=== PATIENT | male | born 1980 | race Caucasian/White ===

== ENCOUNTER 2023-05-22 18:25 | Emergency (ER) | payer OTHER, SELFPAY ==
[2023-05-22 18:38] VITALS: BP 133/89
[2023-05-22 18:53] LABS: % Basophils 0.3 % (0-2); % Eosinophils 0.3 % (0-6); % Immature Granulocytes 0.5 % (0-0.5); % Monocytes 7.1 % (1.7-9.3); % Neutrophils 82.8 % (42.2-75.2); Absolute Basophils 0.1 10^3/uL (0-0.2); Absolute Eosinophils 0.1 10^3/uL (0-0.7); Absolute Immature Granulocytes 0.1 10^3/uL (0-0.05); Absolute Lymphocytes 1.6 10^3/uL (1.2-3.4); Absolute Monocytes 1.3 10^3/uL (0.1-0.6); Absolute Neutrophils 14.7 10^3/uL (1.4-6.5); Hematocrit 43.6 % (39.0-52.0); Hemoglobin 15.7 g/dL (13.0-18.0); Mean Corpuscular Hgb 29.8 pg (27.0-31.0); Mean Corpuscular Volume 82.7 fL (80.0-94.0); Mean Platelet Volume 9.1 fL (7.4-10.4); Nucleated Red Blood Cells % 0 % (-); Platelet Count 290 10^3/uL (130-400); Red Blood Cell Count 5.27 10^6/uL (4.70-6.10); Red Cell Dist. Width 12.7 % (11.5-14.5); White Blood Cell Count 17.7 10^3/uL (4.8-10.8)
[2023-05-22 19:06] LABS: ALT (SGPT) 27 U/L (0-50); AST (SGOT) 27 U/L (17-59); Alkaline Phosphatase 83 U/L (38-126); Carbon Dioxide 27 mmol/L (22-30); Chloride 98 mmol/L (98-107); Glucose 98 mg/dl (70-99); Potassium 4.2 mmol/L (3.5-5.1); Sodium 136 mmol/L (135-145); Total Bilirubin 1.2 mg/dl (0.2-1.3); Total Protein 8.6 g/dl (6.3-8.2); eGFR > 60.00
[2023-05-22 19:15] LABS: Blood Urea Nitrogen 17 mg/dl (9-20)
[2023-05-22 21:55] VITALS: BP 131/90
[2023-05-22 21:57] VITALS: BMI 28.5
[2023-05-22] MEDS: TYLENOL 1000 MG PO (22:12)
[2023-05-22] MEDS: NSS 1000 IV (22:18)
[2023-05-22 23:42] VITALS: BP 121/76
[2023-05-23 00:03] LABS: Urine Albumin Negative (Neg - Trace); Urine Bilirubin Negative (Negative); Urine Character Clear (Clear); Urine Color Yellow; Urine Glucose Negative (Negative); Urine Ketone Trace (Negative); Urine Leukocyte Trace (Negative); Urine Nitrite Negative (Negative); Urine Occult Blood Negative (Negative); Urine Specific Gravity 1.015 (<1.030); Urine Urobilinogen Negative (Neg - 1+)
[2023-05-23 00:40] VITALS: BP 142/72
[2023-05-23 00:44] LABS: Urine Bacteria Few (Negative); Urine White Cell 0-2 /HPF (0-5)
[2023-05-23 01:50] VITALS: BP 120/76
[2023-05-23] MEDS: BACTRIM DS 800 MG/160 MG 2 TABLET PO (01:52)
[2023-05-23] MEDS: KEFLEX 500 MG PO (01:52)
[2023-05-23 01:57] VITALS: BP 120/76
--- NOTE | 2023-05-23 02:43 | ED.GENMED ---
History of Present Illness
General
Chief Complaint: Male Genito-Urinary Symptoms
Source: patient
Exam Limitations: none
Time Seen by Provider: 05/22/23 21:50
Nursing documentation reviewed up to this point in time: agreed with
Travel History
Have you had any contact with someone who has COVID-19?: No
Do you have any symptoms of coronavirus? Fever > 100 degrees, chills, cough, shortness of breath, sore throat, loss of taste or smell, muscle aches, or headache?: No
History of Present Illness
History of Present Illness:
42-year-old male with [place] history of anxiety depression GERD presenting to the emergency department today with concerns of swelling to his right testicle worsening over the past 2 days. Was seen in urgent care and sent to ER denies any fevers
or systemic symptoms. Denies any urinary symptoms.
Past History
Past History
ED Past Medical History: GERD and Psychiatric (Panic attack)
ED Past Surgical History: None
Social History
Tobacco: Non-smoker
Alcohol: Occasional
Drug: None
Personal:
Living: with family
Employment: Employed
Family History
Family History: Other (Nonsignificant)
Review of Systems
Review of Systems
Allergies reviewed?: Yes
All Other Systems: ROS reviewed and negative except as documented in HPI and ROS
Phy Exam
Physical Exam
Physical Exam:
GENERAL: Alert , in no apparent distress
EYE: pupils equal and reactive
NECK: Supple, no significant adenopathy.
ENT: o/p clr, mmm.
CARDIAC: Regular rate and rhythm .
LUNGS: Clear breath sounds bilaterally, no acute respiratory distress, no wheezes/rales/rhonchi
ABDOMEN: Just below the right scrotum is an area of fluctuance and induration roughly 3 cm in size no spontaneous drainage normal testicular exam soft, without focal tenderness, no r/g, no cvat
NEUROLOGICAL: Alert and oriented, no focal neuro deficits
SKIN: Warm and dry, skin intact.
MUSCULOSKELETAL: No edema, well perfused.
PSYCH: Normal and appropriate interaction.
Course
Orders/Labs/Results
Orders:
Orders
05/22/23 18:44
Complete Blood Count/With Diff Urgent
Comprehensive Metabolic Panel Urgent
05/22/23 21:50
Scrotum US [US Scrotum] Urgent
Comment:
Reason For Exam: right testicle swelling
05/22/23 22:02
Acetaminophen [Tylenol] 1,000 mg PO NOW STA
05/22/23 22:03
0.9% Sodium Chloride 1000 ml [Nss] 1,000 ml IV BOLUS
05/22/23 22:19
Lactic Acid Urgent
05/22/23 23:30
Chlamydia/GC by PCR Urgent
CARLOS Source: Urine
Specimen Description:
Source:: URINE
Date Specimen was Collected: 05/22/23
Time Specimen was Collected: 23:44
05/22/23 23:48
Urinalysis Reflex To Culture Urgent
Date Specimen was Collected: 05/22/23
Time Specimen was Collected: 23:44
Urine Microscopic Reflex Cult Urgent
05/23/23 01:46
Cephalexin Monohydrate [Keflex] 500 mg PO NOW STA
Sulfamethox./Trimethoprim Ds [Bactrim Ds 800 mg/160 mg] 2 tablet PO NOW STA
Abnormal Lab Results
05/22/23 05/22/23
18:44 23:48
WBC 17.7 H 10^3/uL
(4.8-10.8)
Abs Immat Gran (auto) 0.1 H 10^3/uL
(0-0.05)
Absolute Neuts (auto) 14.7 H 10^3/uL
(1.4-6.5)
Absolute Monos (auto) 1.3 H 10^3/uL
(0.1-0.6)
Neutrophils % 82.8 H %
(42.2-75.2)
Lymphocytes % 9.0 L %
(20.5-51.1)
Total Protein 8.6 H g/dl
(6.3-8.2)
Urine Ketones Trace A
(Negative)
Leukocyte Esterase Rfl Trace A
(Negative)
Urine RBC 3-6 A /HPF
(0-2)
Urine Bacteria (Reflex) Few A
(Negative)
05/22/23 18:44
05/22/23 18:44
Vital Signs
Initial and Last Documented VS:
Initial Vital Signs
Temp Pulse Resp BP Pulse Ox
99.5 F 80 18 133/89 100
05/22/23 18:38 05/22/23 18:38 05/22/23 18:38 05/22/23 18:38 05/22/23 18:38
Last Documented Vital Signs
Temp Pulse Resp BP Pulse Ox
99.2 F 96 17 120/76 95
05/22/23 23:42 05/23/23 01:50 05/23/23 01:50 05/23/23 01:50 05/23/23 01:50
Procedures
Incision/Drainage/Joint Aspiration
Right Groin:
Anethesia: 1% Lidocaine with Epi
Preparation: cleaned with Hibiclens
Type of procedure: incise and drain
Nature of site: abscess
Description of abscess: greater than 3cm
Loculations broken up: Yes
How much fluid was obtained?: large amount
Fluid description: purulent
Treatment: left open for drainage
MDM/Problems Addressed
MDM/Problems Addressed:
42-year-old male presenting to the emergency department today with concerns of swelling below his right scrotum over the past 24 hours. Low risk for STDs claims that he had a single partner. Does avoid 0.7 Temperature of 99.2 Reassessment
Otherwise Vital Signs Are Normal. Additional Labs Unremarkable. Ultrasound Was Performed That Showed Scrotal Wall Skin Abscess but Not Involving the Inner Contents of the Scrotum. Case Was Discussed with Urology They Recommended Superficial
Incision and Drainage Here and Outpatient Follow-Up. Patient Was Agreeable to This Plan. Started on Bactrim and Keflex and Advised for Close Outpatient Follow-Up. Return Precautions Given.
*Critical Care Note
Total Time (30-74mins, 75-104mins- exclusive of procedures): Not Applicable
ED Attending Note
-
Portions of this chart may have been created with voice recognition software.� Occasional wrong word or��sound alike� substitutions may have occurred due to the inherent limitations of voice recognition software.
Discharge Plan
Departure
Patient Disposition: Home (Routine Discharge)
Date of Disposition: 05/23/23
Time of Disposition: 03:46
Patient with high blood pressure during this ER visit?: No
Condition: Good
Covid-19: Not Applicable
Discharge Problem:
Abscess of scrotal wall
Instructions: Abscess Incision and Drainage (DC)
Prescriptions:
New
sulfamethoxazole-trimethoprim [Bactrim DS] 800-160 mg tablet
1 tab PO BID 5 Days Qty: 10 0RF
cephalexin 500 mg capsule
500 mg PO QID 5 Days Qty: 20 0RF
Referrals:
Guanaco Hameed MD [Family Provider] -
Jaguar Sanders MD [Active] - Follow up in 5-7 days
Activity Restrictions/Additional Instructions:
You came to the emergency department today with concerns of an abscess below your scrotum. This was drained with a significant amount of purulence here. Please use warm compresses to the area and keep the area clean and covered. Please
antibiotics and follow-up closely with urology. Immediately return to the emergency department for any worsening symptoms.
Interventions
Interventions:
*Risk Screen - Suicide Last Done: 05/22/23 21:58
*General Assessment Last Done: 05/22/23 21:58
*Neglect/Abuse Screening Last Done: 05/22/23 21:58
ED- Fall Risk Assessment Last Done: 05/22/23 23:40
*ED COVID-19 Vaccine History Last Done: 05/22/23 18:39
ED-Male Genitourinary Assessment Last Done: 05/22/23 23:40
Discharge Date and Time
Print Language: FRENCH
== END 2023-05-23 04:00 | disposition home or self-care (01) ==
LOC: EMR 18:25
PROVIDERS: Physician Assistant; Student in an Organized Health Care Education/Training Program; EMERGENCY PHYSICIAN Emergency Medicine; FAMILY PHYSICIAN Family Medicine
DX: N49.2 Inflammatory disorders of scrotum (principal); K21.9 Gastro-esophageal reflux disease without esophagitis; F41.9 Anxiety disorder, unspecified; F32.A Depression, unspecified; F41.0 Panic disorder [episodic paroxysmal anxiety]
CPT/HCPCS: 54700; 99284; 96360; 76870; 80053; 81003; 81015; 83605; 85025; 87491; 87591; 93976

== ENCOUNTER 2023-10-05 03:59 | Emergency (ER) | payer OTHER, SELFPAY ==
[2023-10-05 04:07] VITALS: BP 142/92
[2023-10-05 04:44] VITALS: BP 129/89
[2023-10-05 04:48] LABS: % Basophils 0.4 % (0-2); % Immature Granulocytes 0.2 % (0-0.5); % Lymphocytes 29.5 % (20.5-51.1); % Monocytes 7.9 % (1.7-9.3); Absolute Eosinophils 0.3 10^3/uL (0-0.7); Absolute Lymphocytes 2.7 10^3/uL (1.2-3.4); Absolute Monocytes 0.7 10^3/uL (0.1-0.6); Absolute Neutrophils 5.4 10^3/uL (1.4-6.5); Hemoglobin 14.1 g/dL (13.0-18.0); Mean Corp Hgb Conc. 36.2 g/dL (33.0-37.0); Mean Corpuscular Hgb 29.4 pg (27.0-31.0); Mean Corpuscular Volume 81.3 fL (80.0-94.0); Mean Platelet Volume 9.6 fL (7.4-10.4); Nucleated Red Blood Cells % 0 % (-); Platelet Count 264 10^3/uL (130-400); Red Cell Dist. Width 12.4 % (11.5-14.5); White Blood Cell Count 9.2 10^3/uL (4.8-10.8)
[2023-10-05 04:51] VITALS: BMI 27.1
[2023-10-05 05:00] VITALS: BP 135/90
[2023-10-05 05:04] LABS: ALT (SGPT) 24 U/L (0-50); AST (SGOT) 24 U/L (17-59); Albumin 4.3 g/dl (3.5-5.0); Alkaline Phosphatase 76 U/L (38-126); Blood Urea Nitrogen 20 mg/dl (9-20); Calcium 9.6 mg/dl (8.4-10.2); Carbon Dioxide 23 mmol/L (22-30); Chloride 107 mmol/L (98-107); Estimated Creatinine Clearance 121 ml/min; Glucose 102 mg/dl (70-99); Potassium 3.7 mmol/L (3.5-5.1); Sodium 142 mmol/L (135-145); Total Bilirubin 0.6 mg/dl (0.2-1.3); eGFR > 60.00
--- NOTE | 2023-10-05 05:08 | ED.GENMED ---
History of Present Illness
General
Chief Complaint: Chest Pain
Source: patient
Exam Limitations: none
Time Seen by Provider: 10/05/23 04:49
Nursing documentation reviewed up to this point in time: agreed with
History of Present Illness
History of Present Illness:
This is a 43-year-old gentleman who has history of anxiety, takes alprazolam on an as-needed basis. He also has a history of GERD and was previously prescribed omeprazole perhaps 3 years ago. He complains of left-sided chest pain/pressure/burning
sensation that initially began 36 hours ago just prior to boarding an airplane in [facility] to fly home. Left-sided chest pain radiated to his left lateral neck, left jaw and down his left arm and was preceded by upper abdominal fullness/bloating
sensation. No other associated symptoms, no coughing or shortness of breath nor nausea, no diaphoresis nor palpitations, no dizziness or lightheadedness. He took an alprazolam and was able to sleep on the plane, the chest discomfort resolved
within 2 hours. He was feeling well throughout the day yesterday with no return of pain but then returned again tonight, at 1 AM while sitting at his desk doing work, initially began with some abdominal bloating and then left-sided chest pain that
was worse with bending forward, worse with leaning over his desk, left-sided chest discomfort again radiated to his left lateral neck, mildly down his left arm. No back pain, no other associated symptoms. He does admit to eating a light snack just
prior to onset of abdominal bloating and chest discomfort.
He did not take anything for discomfort and chest pain is now resolved. He denies leg pain or swelling.
He states family history of heart disease in his grandfather who in his 50s of an DC but no history of CAD in immediate family members and no history of thromboembolism.
Patient travels to various countries generally twice per month.
Past History
Past History
ED Past Medical History: GERD and Psychiatric (Panic attack)
ED Past Surgical History: Cholecystectomy, Orthopedic and Tonsilectomy
Social History
Tobacco: Non-smoker
Alcohol: Occasional
Drug: None
Personal:
Living: with family
Employment: Employed
Family History
Family History: Other (Nonsignificant)
Phy Exam
Physical Exam
Physical Exam:
GENERAL: 43-year-old gentleman appears his stated age, bright and alert, pleasant, appears in no acute distress.
EYE: anicteric
NECK: Supple, nontender, no meningismus, no significant adenopathy.
ENT: oral mucosa is moist. No rhinorrhea. Moderate erythematous rosacea to face.
CARDIAC: Regular rate and rhythm. no murmur. No rubs.
LUNGS: Clear breath sounds bilaterally, no acute respiratory distress, no wheezes/rales/rhonchi
ABDOMEN: Soft, nondistended, without focal tenderness, no r/g, no cvat. normoactive BS.
NEUROLOGICAL: Alert and oriented x3, no focal neuro deficits. Gait is steady.
SKIN: Warm and dry, normal color, skin intact. No rash.
MUSCULOSKELETAL: No C/C/E. peripheral pulses are full and equal b/l. No palpable tenderness.
PSYCH: Normal and appropriate interaction.
Scores
Heart Score for Chest Pain Patients
STEMI patient?: No
History: Moderately Suspicious
ECG: Normal
Age: </= 45 years
Risk Factors: No Risk Factors
Troponin: </= Normal Limit
Heart Score for Chest Pain Patients: 1
Heart Score Risk: 2.5% MACE over next 6 weeks
Course
Orders/Labs/Results
Orders:
Orders
10/05/23 04:00
ECG [Electrocardiogram (*1)] Urgent
Reason for Study: Chest Pain
EKG- Treatment ONCE
10/05/23 04:17
Cardiac Monitoring- Treatment ONCE
CR Chest - 2 Views Urgent
Comment:
Reason For Exam: respiratory distress
O2 Therapy [RESP] Urgent
Titrate/Wean O2 to maintain O2 sat greater than (%): 93
Special Instructions: TO MAINTAIN CONTINUOUS O2 SATS >/= 93%
Pulse Ox/cont/shift [RESP] Urgent
Quantity: 1
Special Instructions: continuous pulse ox
10/05/23 04:35
Complete Blood Count/With Diff Urgent
Comprehensive Metabolic Panel Urgent
NT-proBNP Urgent
Troponin I Urgent
10/05/23 05:12
D-Dimer Urgent
10/05/23 05:59
Pantoprazole [Protonix IV] 40 mg IV NOW STA
Abnormal Lab Results
10/05/23
04:35
Absolute Monos (auto) 0.7 H 10^3/uL
(0.1-0.6)
Glucose 102 H mg/dl
(70-99)
10/05/23 04:35
10/05/23 04:35
Vital Signs
Initial and Last Documented VS:
Initial Vital Signs
Temp Pulse Resp BP Pulse Ox
98.2 F 68 22 142/92 98
10/05/23 04:07 10/05/23 04:07 10/05/23 04:07 10/05/23 04:07 10/05/23 04:07
Last Documented Vital Signs
Temp Pulse Resp BP Pulse Ox
98.2 F 62 14 135/90 96
10/05/23 04:07 10/05/23 05:30 10/05/23 05:30 10/05/23 05:00 10/05/23 05:30
MDM/Problems Addressed
Differential Diagnosis Includes:
Concern for ACS, GERD, due to extensive air travel must also consider PE.
No significant risk factors for CAD and only risk factor for PE is like the air travel.
EKG is unremarkable showing normal sinus rhythm, normal axis, normal intervals, no acute ST-T wave abnormalities. Similar and unchanged from previous EKG 2017.
Will check labs including troponin, D-dimer.
Chest x-ray is unremarkable.
Chronic conditions affecting care: Other (GERD)
*Radiology
Radiology exam reviewed: preliminary read by ED provider (Chest x-ray is unremarkable.)
*Pulse Oximetry
Patient hypoxic: no
*EKG
Interpreted by ED Provider?: Yes
Interpretation: normal
Comparison EKG: no changes (Unchanged from previous 2014)
Rate: normal
Rhythm: sinus
[place]: normal axis
Interval: normal interval
QRS Pattern: normal QRS
Ischemia: no ischemia
*Laceworker Interpretation
Rate: normal
Interpretation: normal
Rhythm: sinus
*Critical Care Note
Total Time (30-74mins, 75-104mins- exclusive of procedures): Not Applicable
Update Note
Update Note:
Patient remains pain-free and comfortable.
EKG is unremarkable. Chest x-ray is unremarkable.
Labs are unremarkable including negative troponin and negative D-dimer.
With normal troponin despite 3 hours of persistent chest discomfort, unremarkable EKG, ACS is unlikely.
History most suggestive of GERD.
Recommend resumption of omeprazole and prescription has been provided.
Due to family history of CAD, we will refer to our chest pain hotline.
Follow-up with PCP as well.
Return precautions discussed.
ED Attending Note
-
Portions of this chart may have been created with voice recognition software.� Occasional wrong word or��sound alike� substitutions may have occurred due to the inherent limitations of voice recognition software.
Discharge Plan
Departure
Patient Disposition: Home (Routine Discharge)
Date of Disposition: 10/05/23
Time of Disposition: 05:59
Patient with high blood pressure during this ER visit?: No
Condition: Good
Discharge Problem:
Nonspecific chest pain, GERD (gastroesophageal reflux disease)
Instructions: Acid Reflux and GERD in Adults (DC), Chest Pain CBC Follow Up
Prescriptions:
New
omeprazole 40 mg capsule,delayed release(DR/EC)
40 mg PO DAILY Qty: 30 1RF
Referrals:
Yonathan Lopez MD [Family Provider] - Call in 1-3 days for appt
Interventions
Interventions:
*Risk Screen - Suicide Last Done: 10/05/23 04:07
*General Assessment Last Done: 10/05/23 04:39
*Neglect/Abuse Screening Last Done: 10/05/23 04:07
ED- Fall Risk Assessment Last Done: 10/05/23 04:39
*ED COVID-19 Vaccine History Last Done: 10/05/23 04:47
ED- Cardiac Assessment Last Done: 10/05/23 04:39
Discharge Date and Time
Print Language: OCCITAN
[2023-10-05 05:09] LABS: NT-proBNP < 20.0 pg/ml; Troponin I < 0.012 ng/ml
[2023-10-05 05:45] LABS: D-Dimer < 0.27 ug/mlFEU (0.00-0.50)
[2023-10-05 06:02] VITALS: BP 125/83
[2023-10-05] MEDS: PROTONIX IV 40 MG IV (06:03)
== END 2023-10-05 06:19 | disposition home or self-care (01) ==
LOC: EMR 03:59
PROVIDERS: EMERGENCY PHYSICIAN Emergency Medicine; FAMILY PHYSICIAN Family Medicine
DX: R07.89 Other chest pain (principal); K21.9 Gastro-esophageal reflux disease without esophagitis; F41.9 Anxiety disorder, unspecified
CPT/HCPCS: 99285; 96374; 71046; 80053; 83880; 84484; 85025; 85379; 93005

== ENCOUNTER → 2023-10-16 10:59 | Outpatient (REF) | payer OTHER, SELFPAY | LOC: RCS 10:59 | PROVIDERS: ATTENDING PHYSICIAN Internal Medicine; FAMILY PHYSICIAN Family Medicine | DX: R07.89 Other chest pain (principal); E78.00 Pure hypercholesterolemia, unspecified; F41.9 Anxiety disorder, unspecified | CPT/HCPCS: 93017 ==